=== PATIENT | male | born 1980 | race Caucasian/White ===

== ENCOUNTER → 2017-12-05 | Day surgery (SDC) | payer OTHER ==
[2017-11-27 12:37] VITALS: Ht 180.3 cm; Wt 109.1 kg
--- NOTE | 2017-12-04 12:11 | History and Physical: Surg Cnt ---
History & Physical Date Dec 04, 2017. Chief Complaint voice change History of Present Illness The patient is a 37 year old male with complaints of right false vocal cord polyp/papilloma Additional History Hepatic Disease: No Endocrine Disorder: No Kidney Disease: No Hypertension: No Heart Disease: No Bleeding Tendencies: No Infectious Diseases: No Allergies Coded Allergies: NO KNOWN DRUG ALLERGIES (Verified Allergy, Unknown, ., 11/27/17) Home Medications Scheduled Aripiprazole (Abilify), 1 TAB PO HS Bupropion (Wellbutrin-Xl), 300 MG PO HS Cetirizine Hcl (Zyrtec), 10 MG PO HS Oseltamivir Phosphate (Tamiflu), 75 MG PO BID Scheduled PRN Esomeprazole Magnesium (Nexium), 20 MG PO DAILY PRN for Indigestion Physical Examination Skin: warm/dry, no rash Eyes: normal inspection, EOMI, sclerae normal ENT: normal ENT inspection, pharynx normal Head: normocephalic, atraumatic Neck: supple, no adenopathy, trachea midline Respiratory/Chest: lungs clear, normal breath sounds, no respiratory distress Cardiovascular: regular rate, rhythm, no edema, no murmur Abdomen / GI: normal bowel sounds, non tender Back: normal inspection Extremities: normal inspection, normal range of motion Neurologic/Psych: no motor/sensory deficits, alert, normal reflexes, oriented x 3 Diagnosis laryngeal polyp Plan of Treatment direct laryngoscopy, micro excision
[~2017-12-05] VITALS: Ht 180.3 cm; Wt 109.1 kg
[~2017-12-05] MED LIST: ABL10 PO; ATROPINE SULFATE 0.1 MG/ML 5ML SYR IV PRN; BUPRTAB51 PO; CETI10TA10 PO; DEXAMETHASONE SOD INJ 4 MG/ML VIAL ONE; ESOM20CA PO; EpHEDrine SULFATE INJ 50 MG/ML AMP IV PRN; EpINEphrine INJ 1MG/ML AMP 1 MG/ML AMP ONE; FENTANYL CITRATE INJ 50 MCG/1 ML 2 ML VIAL IV PRN; FENTANYL CITRATE INJ 50 MCG/1 ML 2 ML VIAL ONE; HYDROCODONE/ACETAMOPHEN 5/325MG TAB PO PRN; HYDROmorphone INJ 0.5 MG/0.5 ML SYR IV PRN; LACTATED RINGER'S 1000ML 1,000 ML IV SCH; LIDOCAINE HCL 2% 2 ML VIAL (20MG/ML) ONE; MIDAZOLAM HCL 1 MG/ML 2ML VIAL ONE; ONDANSETRON INJ 2 MG/ML 2 ML VIAL IV PRN; ONDANSETRON INJ 2 MG/ML 2 ML VIAL ONE; OSEL75CA23 PO; PROMETHAZINE HCL INJ 12.5 MG in SODIUM CHLORIDE 0.9% 50ML 50 ML IV PRN; PROPOFOL IV EMULSION 10 MG/ML 20 ML VIAL IV ONE; SODIUM CHLORIDE 0.9% 1000ML 1,000 ML IV SCH; SUCCINYLCHOLINE CHLORIDE 20 MG/ML 10 ML VIAL IV ONE
--- NOTE | 2017-12-05 08:03 | History & Physical Bridge Note ---
H&P Re-Evaluation Bridge Note: I have examined the patient, reviewed the History & Physical and in the interval since the performance of the History & Physical I have noted the following changes of clinical significance: No changes noted
--- NOTE | 2017-12-05 11:15 | [facility] Post Operative Brief Note ---
Immediate Operative Summary Operative Date Dec 05, 2017. 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 Polo Dial Marker Surgeon(s) none Estimated Blood Loss 5ml Findings Consistent with Post-Op Diagnosis Specimens A: Right true vocal cord papilloma B: Left true vocal cord papilloma Drains None Anesthesia Type General Complication(s) none Disposition Accompanied Pt To Recover: yes Disposition: Recovery Room / PACU
--- NOTE | 2017-12-05 11:19 | [facility] Operative Report ---
Operative Report Operative Date Dec 05, 2017. 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 Polo Reservation Sales Agent Surgeon(s) none Estimated Blood Loss 5ml Findings Papillomatosis of both vocal cords Specimens A: Right true vocal cord papilloma B: Left true vocal cord papilloma Drains none Anesthesia Gen. endotracheal Complication(s) None Disposition Recovery Room / PACU Implants None Indications 37-year-old male with significant hoarseness found to have polypoid change of the right vocal cord Description of Procedure The patient was brought to the operating room and placed in the supine position. General endotracheal anesthesia was induced. He was draped in the usual sterile manner. Direct laryngoscopy was performed using the Dedo laryngoscope. The epiglottis was sharp the vallecula was normal the piriform sinus area and post cricoid area were normal. The endolarynx was inspected it was found that the patient had papillomas of both true vocal cords extensively covering both vocal cords. Suspension and microlaryngoscopy was performed. Both vocal cords were covered with papilloma. The papillomas were removed using the cup forceps and microscissors. Hemostasis was controlled using a cottonoid with topical epinephrine. The patient her procedure well was taken recovery area in satisfactory condition. I attest to the content of the Intraoperative Record and any orders documented therein. Any exceptions are noted below.
--- NOTE | 2017-12-05 11:20 | Discharge Instructions-SurgCtr ---
Discharge Instructions Date of Service Dec 05, 2017. Visit Reason for Visit: Laryngeal Polyp Discharge Discharge Diagnosis / Problem: papillomatosis of both vocal cords Discharge Goals Goal(s): Therapeutic intervention Activity Recommendations Activity Limitations: resume your previous activity Anesthesia . Post Anesthesia Instructions: If you have had General Anesthesia or IV Sedation: * Do not drive today. * Resume driving when surgeon permits. * Do not make important decisions or sign legal documents today. * Call surgeon for: 1. Temperature elevations greater than 101 degrees F. 2. Uncontrollable pain. 3. Excessive bleeding. 4. Persistent nausea and vomiting. 5. Medication intolerance (nausea, vomiting or rash). * For nausea and vomiting use only clear liquids such as: tea, soda, bouillon until nausea subsides, then gradually increase diet as tolerated. * If you have any concerns or questions, call your surgeon's office. If physician is unavailable and it is an emergency, call 911 or go to the nearest emergency room. . Instructions / Follow-Up Instructions / Follow-Up Voice rest for 1 week Diet Recommendations Home Diet: no limitations Procedures Procedures Performed: Direct Larygoscopy, Micro Excision Right and Left vocal cord papilloma Pending Studies Studies pending at discharge: yes List of pending studies: Papillomas from right and from left vocal cord Medical Emergencies . Who to Call and When: Medical Emergencies: If at any time you feel your situation is an emergency, please call 911 immediately. . Non-Emergent Contact Non-Emergency issues call your: Primary Care Provider . . "Provider Documentation" section prepared by Enma Polo. [facility] Monitoring [facility] Search Results: no issues identified
[2017-12-05 12:06] VITALS: TEMP 36.5
--- NOTE | 2017-12-05 12:43 | Anesthesia Progress Nt - [facility] ---
Anesthesia Post Op Note Date & Time Dec 05, 2017 at 12:42 Vital Signs Pain Intensity: 0 Vital Signs Past 12 Hours Date Time Temp Pulse Resp B/P (MAP) Pulse Ox O2 Delivery O2 Flow Rate FiO2 12/05/17 12:06 36.5 75 142/91 (108) 98 12/05/17 11:50 36.8 78 16 130/82 98 Room Air 12/05/17 11:46 129/75 12/05/17 11:43 76 19 12/05/17 11:43 78 19 95 12/05/17 11:41 143/84 12/05/17 11:41 143/84 12/05/17 11:38 74 19 99 12/05/17 11:38 72 19 12/05/17 11:38 74 19 99 12/05/17 11:38 72 19 12/05/17 11:36 128/80 12/05/17 11:36 128/80 12/05/17 11:33 73 21 100 12/05/17 11:33 73 21 100 12/05/17 11:33 76 21 12/05/17 11:33 76 21 12/05/17 11:31 146/83 12/05/17 11:31 146/83 12/05/17 11:28 75 18 12/05/17 11:28 77 18 100 12/05/17 11:28 77 18 100 12/05/17 11:28 75 18 12/05/17 11:27 78 12 99 12/05/17 11:27 78 12 12/05/17 11:26 143/81 12/05/17 11:22 74 19 99 12/05/17 11:22 74 19 12/05/17 11:21 142/90 12/05/17 11:20 77 18 12/05/17 11:20 78 18 100 12/05/17 11:15 136/86 12/05/17 11:15 36.7 72 14 136/86 100 Humidified Oxygen 5 Mask 12/05/17 08:19 36.7 81 20 128/85 (99) 97 Room Air Notes Mental Status: alert / awake / arousable, participated in evaluation Pt Amnestic to Procedure: Yes Nausea / Vomiting: adequately controlled Pain: adequately controlled Airway Patency, RR, SpO2: stable & adequate BP & HR: stable & adequate Hydration State: stable & adequate Anesthetic Complications: no major complications apparent
[2017-12-05 12:45] VITALS: BP 129/82; PULSE 73; O2SAT 97
== END | disposition home or self-care (01) ==
LOC: X.SURG 08:12
PROVIDERS: ATTEND Otolaryngology
DX: D14.1 Benign neoplasm of larynx (principal); J38.1 Polyp of vocal cord and larynx; Z79.899 Other long term (current) drug therapy